=== PATIENT | male | born 1940 | race Caucasian/White ===

== ENCOUNTER 2018-07-01 07:36 | Outpatient (CLI) | payer MEDICARE, OTHER ==
[2018-07-01 08:20] LABS: ALBUMIN 4.3 g/dL (3.2-5.5); ALBUMIN/GLOBULIN RATIO 1.5 (1.0-2.2); ALKALINE PHOSPHATASE 64 IU/L (42-121); ALT ALANINE AMINOTRANSFERASE 65 IU/L (10-60); AST ASPARTATE AMINOTRANSFERASE 51 IU/L (10-42); BILIRUBIN,TOTAL 0.8 mg/dL (0.2-1.0); BUN - BLOOD UREA NITROGEN 24 mg/dL (6-20); CALCIUM 9.3 mg/dL (8.5-10.3); CARBON DIOXIDE - CO2 28 mmol/L (21-32); CHLORIDE 105 mmol/L (101-111); CHOL/HDL RATIO 4.5 (<5.0); CHOLESTEROL 157 mg/dL; CREATININE 0.8 mg/dL (0.6-1.2); GFR - MDRD 94 (>89); GLUCOSE 113 mg/dL (70-100); HDL CHOLESTEROL 35 mg/dL; LDL CHOLESTEROL,CALCULATED 84 mg/dL; LDL/HDL RATIO 2.4 (<3.6); SODIUM 140 mmol/L (135-145); TOTAL PROTEIN 7.1 g/dL (6.7-8.2); VLDL CHOLESTEROL 38 mg/dL
[2018-07-01 08:42] LABS: BASOPHILS % (AUTO) 0.7 %; EOSINOPHILS # (AUTO) 0.2 10^3/uL (0.0-0.7); EOSINOPHILS % (AUTO) 3.1 %; HGB - HEMOGLOBIN 14.4 g/dL (14.0-18.0); LYMPHOCYTES # (AUTO) 2.7 10^3/uL (1.5-3.5); MEAN CORPUSCULAR HEMOGLOBIN 30.2 pg (27.0-31.0); MEAN CORPUSCULAR HGB CONC 33.3 g/dL (32.0-36.0); MEAN CORPUSCULAR VOLUME 90.7 fL (80.0-94.0); MEAN PLATELET VOLUME 8.9 fL (7.4-11.4); MONOCYTES # (AUTO) 0.5 10^3/uL (0.0-1.0); MONOCYTES % (AUTO) 9.1 %; NEUTROPHILS # (AUTO) 2.4 10^3/uL (1.5-6.6); NEUTROPHILS % (AUTO) 41.1 %; PLT - PLATELET COUNT 155 10^3/uL (130-450); RED BLOOD COUNT 4.77 10^6/uL (4.70-6.10); RED CELL DISTRIBUTION WIDTH 13.8 % (12.0-15.0); WHITE BLOOD COUNT 5.8 x10^3/uL (4.8-10.8)
[2018-07-01 09:15] LABS: THYROID STIMULATING HORMONE 1.05 uIU/mL (0.34-5.60)
[2018-07-01 09:17] LABS: FREE T4 (FREE THYROXINE) 0.99 ng/dL (0.58-1.64)
== END 2018-07-01 07:37 | disposition home or self-care (01) ==
LOC: LAB 07:36
PROVIDERS: ATTEND Family Medicine
DX: E78.2 Mixed hyperlipidemia (principal); L71.9 Rosacea, unspecified; I48.3 Typical atrial flutter; Z86.79 Personal history of other diseases of the circulatory system; E03.9 Hypothyroidism, unspecified
CPT/HCPCS: 36415; 80053; 80061; 83721; 84439; 84443; 84481; 85025

== ENCOUNTER 2019-08-28 08:00 | Outpatient (CLI) | payer MEDICARE, OTHER ==
[2019-08-28 17:44] LABS: BASOPHILS % (AUTO) 0.6 %; EOSINOPHILS # (AUTO) 0.1 10^3/uL (0.0-0.7); EOSINOPHILS % (AUTO) 2.1 %; HGB - HEMOGLOBIN 13.5 g/dL (14.0-18.0); LYMPHOCYTES # (AUTO) 2.3 10^3/uL (1.5-3.5); LYMPHOCYTES % (AUTO) 37.5 %; MEAN CORPUSCULAR HEMOGLOBIN 30.1 pg (27.0-31.0); MEAN CORPUSCULAR HGB CONC 32.4 g/dL (32.0-36.0); MEAN CORPUSCULAR VOLUME 93.1 fL (80.0-94.0); MEAN PLATELET VOLUME 10.7 fL (7.4-11.4); MONOCYTES # (AUTO) 0.6 10^3/uL (0.0-1.0); MONOCYTES % (AUTO) 9.9 %; NEUTROPHILS % (AUTO) 49.4 %; PLT - PLATELET COUNT 164 10^3/uL (130-450); RED BLOOD COUNT 4.48 10^6/uL (4.70-6.10); RED CELL DISTRIBUTION WIDTH 13.3 % (12.0-15.0); WHITE BLOOD COUNT 6.2 x10^3/uL (4.8-10.8)
[2019-08-28 18:00] LABS: ALBUMIN 4.2 g/dL (3.2-5.5); ALBUMIN/GLOBULIN RATIO 1.6 (1.0-2.2); BILIRUBIN,DIRECT 0.1 mg/dL (0.1-0.5); BILIRUBIN,TOTAL 0.9 mg/dL (0.2-1.0); CALCIUM 9.1 mg/dL (8.5-10.3); CREATININE 0.8 mg/dL (0.6-1.2); TOTAL PROTEIN 6.9 g/dL (6.7-8.2)
[2019-08-28 18:32] LABS: HEMOGLOBIN A1C 0.53 g/dL; HEMOGLOBIN A1C % 5.6 % (4.6-6.2)
== END 2019-08-28 23:59 | disposition home or self-care (01) ==
LOC: LAB.WCP 08:00
PROVIDERS: ATTEND Family Medicine
DX: E78.2 Mixed hyperlipidemia (principal); I49.3 Ventricular premature depolarization; E03.9 Hypothyroidism, unspecified
CPT/HCPCS: 36415; 80053; 80076; 83036; 84443; 85025

== ENCOUNTER 2020-09-03 07:32 | Outpatient (CLI) | payer MEDICARE, OTHER ==
[2020-09-03 07:56] LABS: BASOPHILS # (AUTO) 0.1 10^3/uL (0.0-0.1); BASOPHILS % (AUTO) 0.8 %; EOSINOPHILS # (AUTO) 0.2 10^3/uL (0.0-0.7); EOSINOPHILS % (AUTO) 2.9 %; HCT - HEMATOCRIT 42.2 % (42.0-52.0); HGB - HEMOGLOBIN 13.9 g/dL (14.0-18.0); LYMPHOCYTES # (AUTO) 2.5 10^3/uL (1.5-3.5); LYMPHOCYTES % (AUTO) 40.7 %; MEAN CORPUSCULAR HEMOGLOBIN 30.2 pg (27.0-31.0); MEAN CORPUSCULAR HGB CONC 32.9 g/dL (32.0-36.0); MEAN CORPUSCULAR VOLUME 91.7 fL (80.0-94.0); MEAN PLATELET VOLUME 9.8 fL (7.4-11.4); MONOCYTES # (AUTO) 0.6 10^3/uL (0.0-1.0); MONOCYTES % (AUTO) 9.4 %; NEUTROPHILS # (AUTO) 2.8 10^3/uL (1.5-6.6); NEUTROPHILS % (AUTO) 45.7 %; PLT - PLATELET COUNT 151 10^3/uL (130-450); RED CELL DISTRIBUTION WIDTH 13.5 % (12.0-15.0); WHITE BLOOD COUNT 6.2 x10^3/uL (4.8-10.8)
[2020-09-03 08:11] LABS: ALBUMIN 4.4 g/dL (3.2-5.5); ALBUMIN/GLOBULIN RATIO 1.8 (1.0-2.2); ALKALINE PHOSPHATASE 65 IU/L (42-121); ALT ALANINE AMINOTRANSFERASE 58 IU/L (10-60); AST ASPARTATE AMINOTRANSFERASE 41 IU/L (10-42); BILIRUBIN,TOTAL 0.5 mg/dL (0.2-1.0); BUN - BLOOD UREA NITROGEN 22 mg/dL (6-20); CALCIUM 9.2 mg/dL (8.5-10.3); CARBON DIOXIDE - CO2 26 mmol/L (21-32); CHLORIDE 105 mmol/L (101-111); CHOL/HDL RATIO 4.7 (<5.0); CHOLESTEROL 163 mg/dL; CREATININE 0.8 mg/dL (0.6-1.2); GFR - MDRD 93 (>89); GLUCOSE 113 mg/dL (70-100); HDL CHOLESTEROL 35 mg/dL; LDL CHOLESTEROL,CALCULATED 67 mg/dL; LDL/HDL RATIO 1.9 (<3.6); POTASSIUM 3.8 mmol/L (3.5-5.0); SODIUM 141 mmol/L (135-145); TOTAL PROTEIN 6.8 g/dL (6.7-8.2); TRIGLYCERIDES 304 mg/dL; VLDL CHOLESTEROL 61 mg/dL
[2020-09-03 08:20] LABS: THYROID STIMULATING HORMONE 0.71 uIU/mL (0.34-5.60)
== END 2020-09-03 07:33 | disposition home or self-care (01) ==
LOC: LAB 07:32
PROVIDERS: ATTEND Family Medicine
DX: E78.2 Mixed hyperlipidemia (principal); I49.3 Ventricular premature depolarization; Z86.79 Personal history of other diseases of the circulatory system; E03.9 Hypothyroidism, unspecified
CPT/HCPCS: 36415; 80053; 80061; 83721; 84443; 85025

== ENCOUNTER 2021-04-23 07:39 | Outpatient (CLI) | payer MEDICARE, OTHER ==
[2021-04-23 08:07] LABS: BUN - BLOOD UREA NITROGEN 26 mg/dL (6-20); CALCIUM 9.1 mg/dL (8.5-10.3); CARBON DIOXIDE - CO2 28 mmol/L (21-32); CHLORIDE 103 mmol/L (101-111); CHOL/HDL RATIO 4.6 (<5.0); CHOLESTEROL 133 mg/dL; GFR - MDRD 72 (>89); GLUCOSE 109 mg/dL (70-100); HDL CHOLESTEROL 29 mg/dL; LDL CHOLESTEROL,CALCULATED 72 mg/dL; LDL/HDL RATIO 2.5 (<3.6); POTASSIUM 4.2 mmol/L (3.5-5.0); SODIUM 139 mmol/L (135-145); TRIGLYCERIDES 158 mg/dL; VLDL CHOLESTEROL 32 mg/dL
[2021-04-23 10:34] LABS: ESTIMATED AVERAGE GLUCOSE 120 mg/dL (70-100); HEMOGLOBIN A1c% 5.8 % (4.27-6.07)
== END 2021-04-23 07:40 | disposition home or self-care (01) ==
LOC: LAB 07:39
PROVIDERS: ATTEND Family Medicine
DX: E78.2 Mixed hyperlipidemia (principal); R73.9 Hyperglycemia, unspecified
CPT/HCPCS: 36415; 80048; 80061; 83036; 83721

== ENCOUNTER 2022-05-15 07:26 | Outpatient (CLI) | payer MEDICARE, OTHER ==
[2022-05-15 07:39] LABS: BASOPHILS # (AUTO) 0.1 10^3/uL (0.0-0.1); EOSINOPHILS # (AUTO) 0.2 10^3/uL (0.0-0.7); EOSINOPHILS % (AUTO) 2.9 %; HGB - HEMOGLOBIN 14.2 g/dL (14.0-18.0); LYMPHOCYTES # (AUTO) 2.7 10^3/uL (1.5-3.5); LYMPHOCYTES % (AUTO) 43.7 %; MEAN CORPUSCULAR HEMOGLOBIN 29.8 pg (27.0-31.0); MEAN CORPUSCULAR HGB CONC 32.3 g/dL (32.0-36.0); MEAN CORPUSCULAR VOLUME 92.4 fL (80.0-94.0); MEAN PLATELET VOLUME 9.7 fL (7.4-11.4); MONOCYTES # (AUTO) 0.6 10^3/uL (0.0-1.0); MONOCYTES % (AUTO) 9.3 %; NEUTROPHILS # (AUTO) 2.6 10^3/uL (1.5-6.6); NEUTROPHILS % (AUTO) 42.8 %; PLT - PLATELET COUNT 151 10^3/uL (130-450); RED BLOOD COUNT 4.76 10^6/uL (4.70-6.10); RED CELL DISTRIBUTION WIDTH 13.4 % (12.0-15.0); WHITE BLOOD COUNT 6.2 x10^3/uL (4.8-10.8)
[2022-05-15 08:01] LABS: ALBUMIN 4.2 g/dL (3.2-5.5); ALBUMIN/GLOBULIN RATIO 1.6 (1.0-2.2); ALKALINE PHOSPHATASE 64 IU/L (42-121); ALT ALANINE AMINOTRANSFERASE 60 IU/L (10-60); AST ASPARTATE AMINOTRANSFERASE 43 IU/L (10-42); BILIRUBIN,TOTAL 0.9 mg/dL (0.2-1.0); BUN - BLOOD UREA NITROGEN 22 mg/dL (6-20); CALCIUM 9.4 mg/dL (8.5-10.3); CARBON DIOXIDE - CO2 24 mmol/L (21-32); CHLORIDE 109 mmol/L (101-111); CHOL/HDL RATIO 3.2 (<5.0); CHOLESTEROL 145 mg/dL; CREATININE 0.8 mg/dL (0.6-1.2); GFR - MDRD 93 (>89); GLUCOSE 114 mg/dL (70-100); HDL CHOLESTEROL 45 mg/dL; LDL CHOLESTEROL,CALCULATED 71 mg/dL; LDL/HDL RATIO 1.6 (<3.6); SODIUM 140 mmol/L (135-145); TOTAL PROTEIN 6.9 g/dL (6.7-8.2); TRIGLYCERIDES 145 mg/dL; VLDL CHOLESTEROL 29 mg/dL
[2022-05-15 08:14] LABS: THYROID STIMULATING HORMONE 1.61 uIU/mL (0.34-5.60)
[2022-05-15 12:04] LABS: ESTIMATED AVERAGE GLUCOSE 114 mg/dL (70-100); HEMOGLOBIN A1c% 5.6 % (4.27-6.07)
== END 2022-05-15 07:27 | disposition home or self-care (01) ==
LOC: LAB 07:26
PROVIDERS: ATTEND Family Medicine
DX: E03.9 Hypothyroidism, unspecified (principal); E78.2 Mixed hyperlipidemia; R73.9 Hyperglycemia, unspecified; Z12.5 Encounter for screening for malignant neoplasm of prostate
CPT/HCPCS: 36415; 80053; 80061; 83036; 84443; 85025; G0103; 83721; 84153

== ENCOUNTER 2022-11-02 12:31 | Outpatient (CLI) | payer MEDICARE, OTHER ==
--- NOTE | 2022-11-02 16:14 | Ultrasound Report ---
PROCEDURE: Head or Neck Soft Tissue INDICATIONS: THYROID NODULE TECHNIQUE: Real-time scanning was performed of the thyroid gland, with image documentation. COMPARISON: None FINDINGS: The isthmus measures 0.2 cm. Right thyroid measures 2.8 x 1.4 x 1.1 cm. Left thyroid measu res 2.9 x 1.4 x 1.2 cm. Overall diminutive thyroid. No discrete nodule. IMPRESSION: No discrete thyroid nodule. Overall diminutive thyroid. ACR TI-RADS definitions and recommendations: TI-RADS 1 (benign): 0 points. FNA not needed. TI-RADS 2 (not suspicious): 2 points. FNA not needed. TI-RADS 3 (mildly suspicious): 3 points. "FNA if 2.5 cm or larger, follow up if 1.5 cm or larger (at 1, 3, and 5 years). TI-RADS 4 (moderately suspicious): 4-6 points. "FNA if 1.5 cm or larger, follow up if 1 cm or larger (at 1, 2, 3, and 5 years). TI-RADS 5 (highly suspicious): 7 points or more. "FNA if 1 cm or larger, follow up if 0.5 cm or larger (every year for 5 years). Reviewed by: Guanaco Knapp MD on 11/02/2022 4:13 PM PDT Approved by: Guanaco Knapp MD on 11/02/2022 4:13 PM PDT Station ID: [id number]
== END 2022-11-02 12:32 | disposition home or self-care (01) ==
LOC: DI 12:31
PROVIDERS: ATTEND Family Medicine
DX: E04.1 Nontoxic single thyroid nodule (principal)

== ENCOUNTER 2023-06-03 07:27 | Outpatient (CLI) | payer MEDICARE, OTHER ==
[2023-06-03 07:42] LABS: BASOPHILS # (AUTO) 0.1 10^3/uL (0.0-0.1); BASOPHILS % (AUTO) 0.8 %; EOSINOPHILS # (AUTO) 0.2 10^3/uL (0.0-0.7); HCT - HEMATOCRIT 44.2 % (42.0-52.0); HGB - HEMOGLOBIN 14.4 g/dL (14.0-18.0); LYMPHOCYTES # (AUTO) 2.4 10^3/uL (1.5-3.5); LYMPHOCYTES % (AUTO) 40.8 %; MEAN CORPUSCULAR HEMOGLOBIN 30.1 pg (27.0-31.0); MEAN CORPUSCULAR HGB CONC 32.6 g/dL (32.0-36.0); MEAN CORPUSCULAR VOLUME 92.3 fL (80.0-94.0); MEAN PLATELET VOLUME 9.7 fL (7.4-11.4); MONOCYTES # (AUTO) 0.6 10^3/uL (0.0-1.0); MONOCYTES % (AUTO) 10.7 %; NEUTROPHILS # (AUTO) 2.6 10^3/uL (1.5-6.6); NEUTROPHILS % (AUTO) 44.2 %; PLT - PLATELET COUNT 157 10^3/uL (130-450); RED BLOOD COUNT 4.79 10^6/uL (4.70-6.10); RED CELL DISTRIBUTION WIDTH 13.9 % (12.0-15.0); WHITE BLOOD COUNT 5.9 x10^3/uL (4.8-10.8)
[2023-06-03 07:59] LABS: ALBUMIN 4.3 g/dL (3.2-5.5); ALBUMIN/GLOBULIN RATIO 1.7 (1.0-2.2); ALKALINE PHOSPHATASE 95 IU/L (42-121); ALT ALANINE AMINOTRANSFERASE 63 IU/L (10-60); AST ASPARTATE AMINOTRANSFERASE 42 IU/L (10-42); BILIRUBIN,TOTAL 0.7 mg/dL (0.2-1.0); BUN - BLOOD UREA NITROGEN 21 mg/dL (6-20); CALCIUM 9.7 mg/dL (8.5-10.3); CARBON DIOXIDE - CO2 30 mmol/L (21-32); CHLORIDE 106 mmol/L (101-111); CHOLESTEROL 133 mg/dL; CREATININE 0.8 mg/dL (0.6-1.3); GFR - MDRD 93 (>89); GLUCOSE 108 mg/dL (74-104); HDL CHOLESTEROL 45 mg/dL; LDL CHOLESTEROL,CALCULATED 59 mg/dL; LDL/HDL RATIO 1.3 (<3.6); POTASSIUM 3.9 mmol/L (3.5-4.5); SODIUM 141 mmol/L (135-145); TOTAL PROTEIN 6.9 g/dL (6.4-8.9); TRIGLYCERIDES 143 mg/dL (48-352); VLDL CHOLESTEROL 29 mg/dL
[2023-06-03 08:11] LABS: THYROID STIMULATING HORMONE 1.63 uIU/mL (0.34-5.60)
[2023-06-03 09:29] LABS: ESTIMATED AVERAGE GLUCOSE 108 mg/dL (70-100); HEMOGLOBIN A1c% 5.4 % (4.27-6.07)
== END 2023-06-03 07:28 | disposition home or self-care (01) ==
LOC: LAB 07:27
PROVIDERS: ATTEND Family Medicine
DX: I47.10 Supraventricular tachycardia, unspecified (principal); R73.9 Hyperglycemia, unspecified; E78.2 Mixed hyperlipidemia; E03.9 Hypothyroidism, unspecified
CPT/HCPCS: 36415; 80053; 80061; 83036; 83721; 84443; 85025